=== PATIENT | male | born 1950 | race Caucasian/White ===

== ENCOUNTER 2020-05-02 11:03 | Day surgery (SDC) | payer MEDICARE, BC ==
[~2020-05-02] VITALS: Ht 170.2 cm; Wt 81.2 kg
[~2020-05-02 11:03] MED LIST: ASPI81CH PO; CARV25; ELIQUIS5 MG; FURO20 PO; PRAV20 PO; Prinivil10 MG PO
--- NOTE | 2020-05-02 11:49 | NUR ---
Ambulatory in Day Surgery. Surgical site prepped with 2% Chlorhexidine cloth wipe. History, Chart, Medications and Allergies reviewed before start of procedure.Lungs clear T/O to Auscultation. Patient confirms NPO status and agrees with scheduled surgery. Pre-Op teaching done. Pt verbalizes understanding.
--- NOTE | 2020-05-02 15:25 | NUR ---
PT EATS AND DRINKS s NAUSEA. GIVEN RX AND DC INSTRUCTIONS. VERBALIZES AN UNDERSTANDING. NO QUESTIONS. IV DC'D, CATH INTACT AND PRESSURE DRESSING APPLIED. GIVEN SCROTAL SUPPORT. PT ASSISTED c DRESSING, DENIES INCREASE IN PAIN. SURGICAL SITE CONTINUES TO BE s PAIN, SWELLING OR DRAINAGE. PT OTD IN NAD VIA WC TO SAFE RIDE HOME. ALSO VERBALIZES AN UNDERSTANDING OF INSTRUCTIONS. NO QUESTIONS.
== END 2020-05-02 22:42 | disposition home or self-care (01) ==
LOC: ORSCMMR 11:03 → ORD 13:00 → ORSCMMR 22:42
PROVIDERS: Surgery
PROC: 8E0W4CZ Robotic Assisted Procedure of Trunk Region, Percutaneous Endoscopic Approach (ICD-10-PCS; principal; 2020-05-02 13:00)
PROC: 0YU64JZ Supplement Left Inguinal Region with Synthetic Substitute, Percutaneous Endoscopic Approach (ICD-10-PCS; principal; 2020-05-02 13:00)
DX: K40.90 Unilateral inguinal hernia, without obstruction or gangrene, not specified as recurrent (principal); I48.91 Unspecified atrial fibrillation; Z79.01 Long term (current) use of anticoagulants; I10 Essential (primary) hypertension; Z95.0 Presence of cardiac pacemaker; E11.9 Type 2 diabetes mellitus without complications; Z79.899 Other long term (current) drug therapy
CPT/HCPCS: 49650; S2900; 82947; C1781; J0690; J1100; J1885; J2250; J2405; J2704; J3010; J7120

== ENCOUNTER → 2021-09-14 | Outpatient (CLI) | payer MEDICARE, BC | END | disposition home or self-care (01) | LOC: LAB SHORT 09:51 → LAB 09:51 | DX: A49.9 Bacterial infection, unspecified (principal); L02.12 Furuncle of neck; L02.02 Furuncle of face; D22.62 Melanocytic nevi of left upper limb, including shoulder; D22.61 Melanocytic nevi of right upper limb, including shoulder; L81.4 Other melanin hyperpigmentation; L82.1 Other seborrheic keratosis; L57.0 Actinic keratosis; L82.0 Inflamed seborrheic keratosis | CPT/HCPCS: 87070; 87205 ==